=== PATIENT | male | born 1995 | race African-American/Black ===

== ENCOUNTER 2018-01-06 18:00 | Emergency (ER) | payer MEDICAID ==
--- NOTE | 2018-01-06 18:28 | ER Document Report ---
ED Medical Screen (RME) - General Chief Complaint: Psych Problem Stated Complaint: SUICIDAL IDEATIONS Time Seen by Provider: 01/06/18 18:27 Mode of Arrival: Ambulatory Information source: Patient Notes: 22 yr old female (sex change) presents with suicidal ideations. Pt tried ot hurt himself last week with air emboli, was at court today and ceo & board director wanted mental health evaluation pt was in residential for 5 days I have greeted and performed a rapid initial assessment of this patient. A comprehensive ED assessment and evaluation of the patient, analysis of test results and completion of the medical decision making process will be conducted by additional ED providers. PHYSICAL EXAMINATION: GENERAL: Well-appearing, well-nourished and in no acute distress. HEAD: Atraumatic, normocephalic. EYES: Pupils equal round extraocular movements intact, conjunctiva are normal. ENT: Nares patent NECK: Normal range of motion LUNGS: No respiratory distress Musculoskeletal: Normal range of motion NEUROLOGICAL: Normal speech, normal gait. SKIN: Warm, Dry, normal turgor, no rashes or lesions noted. TRAVEL OUTSIDE OF THE [place] IN LAST 30 DAYS: No - Related Data Allergies/Adverse Reactions: benztropine mesylate [From Cogentin] Adverse Reaction (Mild, Verified 01/06/18 18:02) Hallucinations risperidone [From Risperdal] Adverse Reaction (Mild, Verified 01/06/18 18:02) Hallucinations aripiprazole [From Abilify] Adverse Reaction (Verified 01/06/18 18:02) ziprasidone HCl [From Geodon] Adverse Reaction (Verified 01/06/18 18:02) ziprasidone mesylate [From Geodon] Adverse Reaction (Verified 01/06/18 18:02) Past Medical History - Social History Frequency of alcohol use: None Drug Abuse: Marijuana - Past Medical History Cardiac Medical History: Reports: Hx Hypertension Renal/ Medical History: Denies: Hx Peritoneal Dialysis Psychiatric Medical History: Reports: Hx Bipolar Disorder, Hx Schizoaffective Disorder, Hx Schizophrenia - Immunizations Immunizations up to date: Yes Hx Diphtheria, Pertussis, Tetanus Vaccination: Yes Physical Exam - Vital signs Vitals: Temp Pulse Resp BP Pulse Ox 97.7 F 80 18 144/96 H 100 01/06/18 18:06 01/06/18 18:06 01/06/18 18:06 01/06/18 18:06 01/06/18 18:06 Course - Vital Signs Vital signs: Temp Pulse Resp BP Pulse Ox 97.7 F 80 18 144/96 H 100 01/06/18 18:06 01/06/18 18:06 01/06/18 18:06 01/06/18 18:06 01/06/18 18:06
--- NOTE | 2018-01-06 19:37 | ER Document Report ---
ED General - General Chief Complaint: Psych Problem Stated Complaint: SUICIDAL IDEATIONS Time Seen by Provider: 01/06/18 18:27 Mode of Arrival: Ambulatory Cannot obtain history due to: Uncooperative Notes: Patient is a 22-year-old male with a past medical history of schizoaffective disorder currently taking only lithium who presents in the custody of a loan review officer with concerns of decompensation off of appropriate medications as well as suicidal ideation. The patient at the time of my assessment admits to passive suicidal ideation but denies any specific plans. He states last week he tried to inject air into his veins as a suicide attempt. States he has been taking the medications that he can get access to as directed. Nothing improves or worsens his symptoms. History is otherwise somewhat limited as patient is a very guarded historian TRAVEL OUTSIDE OF THE [place] IN LAST 30 DAYS: No - Related Data Allergies/Adverse Reactions: benztropine mesylate [From Cogentin] Adverse Reaction (Mild, Verified 01/06/18 18:02) Hallucinations risperidone [From Risperdal] Adverse Reaction (Mild, Verified 01/06/18 18:02) Hallucinations aripiprazole [From Abilify] Adverse Reaction (Verified 01/06/18 18:02) ziprasidone HCl [From Geodon] Adverse Reaction (Verified 01/06/18 18:02) ziprasidone mesylate [From Geodon] Adverse Reaction (Verified 01/06/18 18:02) Past Medical History - General Information source: Patient - Social History Smoking Status: Current Every Day Smoker Frequency of alcohol use: None Drug Abuse: Marijuana Family History: Reviewed & Not Pertinent Patient has suicidal ideation: Yes Patient has homicidal ideation: Yes - Past Medical History Cardiac Medical History: Reports: Hx Hypertension Renal/ Medical History: Denies: Hx Peritoneal Dialysis Psychiatric Medical History: Reports: Hx Bipolar Disorder, Hx Schizoaffective Disorder, Hx Schizophrenia - Immunizations Immunizations up to date: Yes Hx Diphtheria, Pertussis, Tetanus Vaccination: Yes Review of Systems - Review of Systems Notes: Constitutional: Negative for fever. HENT: Negative for sore throat. Eyes: Negative for visual changes. Cardiovascular: Negative for chest pain. Respiratory: Negative for shortness of breath. Gastrointestinal: Negative for abdominal pain, vomiting or diarrhea. Genitourinary: Negative for dysuria. Musculoskeletal: Negative for back pain. Skin: Negative for rash. Neurological: Negative for headaches, weakness or numbness. 10 point ROS negative except as marked above and in HPI. Physical Exam - Vital signs Vitals: Temp Pulse Resp BP Pulse Ox 97.7 F 80 18 144/96 H 100 01/06/18 18:06 18 18:06 01/06/18 18:06 01/06/18 18:06 01/06/18 18:06 Interpretation: Hypertensive Notes: PHYSICAL EXAMINATION: GENERAL: Well-appearing, well-nourished and in no acute distress. HEAD: Atraumatic, normocephalic. EYES: Pupils equal round and reactive to light, extraocular movements intact, sclera anicteric, conjunctiva are normal. ENT: nares patent, oropharynx clear without exudates. Moist mucous membranes. NECK: Normal range of motion, supple without lymphadenopathy LUNGS: Breath sounds clear to auscultation bilaterally and equal. No wheezes rales or rhonchi. HEART: Regular rate and rhythm without murmurs ABDOMEN: Soft, nontender, normoactive bowel sounds. No guarding, no rebound. No masses appreciated. EXTREMITIES: Normal range of motion, no pitting or edema. No cyanosis. NEUROLOGICAL: No focal neurological deficits. Moves all extremities spontaneously and on command. PSYCH: Flat affect, does not make eye contact SKIN: Warm, Dry, normal turgor, no rashes or lesions noted. Course - Re-evaluation Re-evalutation: 01/06/18 19:36 Patient presents with passive suicidal ideation no specific plan at this time but apparently voiced a plan to inject air into his veins earlier to staff numbers out of senior care. He has a long-standing history of schizoaffective disorder and is apparently not on all prescribed medications only the ones that "my family can afford". Patient is a very reserved historian, does not provide much additional information. He will be kept in the emergency department on a voluntary basis at this time, medical screening labs as well as physical examination are overall unremarkable. He is cleared for psychiatric evaluation and disposition in the morning. - Vital Signs Vital signs: Temp Pulse Resp BP Pulse Ox 97.7 F 80 18 144/96 H 100 01/06/18 18:06 01/06/18 18:06 01/06/18 18:06 01/06/18 18:06 01/06/18 18:06 - Laboratory Result Diagrams: 01/06/18 20:37 01/06/18 20:37 Laboratory results interpreted by me: 01/06/18 01/06/18 01/06/18 20:37 20:37 20:37 Hgb 12.7 L RDW 14.6 H Urine Urobilinogen 2.0 H Salicylates < 1.0 L Acetaminophen < 10 L - EKG Interpretation by Me Additional EKG results interpreted by me: 01/07/18 03:40 Sinus rhythm. Rate 60. No ST elevations or depressions. QTC is 408. Discharge - Discharge Clinical Impression: Suicidal ideation Schizoaffective disorder Qualifiers: Schizoaffective disorder type: unspecified Qualified Code(s): F25.9 - Schizoaffective disorder, unspecified Condition: Fair Disposition: PSYCH HOSP/UNIT
[2018-01-06 21:13] LABS: ABSOLUTE BASOPHILS # (AUTO) 0.1 10^3/uL (0.0-0.2); ABSOLUTE EOSINOPHILS # (AUTO) 0.1 10^3/uL (0.0-0.6); ABSOLUTE LYMPHOCYTES (AUTO) 1.9 10^3/uL (0.5-4.7); ABSOLUTE MONOCYTES (AUTO) 0.3 10^3/uL (0.1-1.4); ABSOLUTE NEUT (AUTO) 3.1 10^3/uL (1.7-8.2); EOSINOPHILS % (AUTO) 1.3 % (0-6); HEMATOCRIT 37.9 % (37.9-51.0); HEMOGLOBIN 12.7 g/dL (13.5-17.0); LYMPHOCYTES % (AUTO) 34.5 % (13-45); MEAN CORPUSCULAR HEMOGLOBIN 27.6 pg (27.0-33.4); MEAN CORPUSCULAR HGB CONC 33.6 g/dL (32.0-36.0); MEAN CORPUSCULAR VOLUME 82 fl (80-97); MONOCYTES % (AUTO) 6.3 % (3-13); PLATELET COUNT 306 10^3/uL (150-450); RED CELL DISTRIBUTION WIDTH 14.6 % (11.5-14.0); SEGMENTED NEUTROPHILS % (AUTO) 56.9 % (42-78); TOTAL CELLS COUNTED % (AUTO) 100 %; WHITE BLOOD COUNT 5.5 10^3/uL (4.0-10.5)
[2018-01-06 21:19] LABS: AMORPHOUS SEDIMENT,URINE TRACE /HPF; APPEARANCE,URINE CLOUDY; BILIRUBIN,URINE NEGATIVE (NEGATIVE); COLOR,URINE YELLOW; GLUCOSE, URINE NEGATIVE (NEGATIVE); KETONES,URINE NEGATIVE (NEGATIVE); LEUKOCYTE ESTERASE,URINE NEGATIVE (NEGATIVE); NITRITE,URINE NEGATIVE (NEGATIVE); PROTEIN,URINE NEGATIVE (NEGATIVE); URINE SPECIFIC GRAVITY 1.025
[2018-01-06 21:33] LABS: URINE AMPHETAMINES SCREEN NEGATIVE; URINE BARBITURATES SCREEN NEGATIVE; URINE BENZODIAZEPINES SCREEN NEGATIVE; URINE COCAINE SCREEN NEGATIVE; URINE MARIJUANA (THC) SCREEN NEGATIVE; URINE METHADONE SCREEN NEGATIVE; URINE PHENCYCLIDINE SCREEN NEGATIVE
[2018-01-06 21:36] LABS: ALANINE AMINOTRANSFERASE 29 U/L (21-72); ALBUMIN 4.4 g/dL (3.5-5.0); ALKALINE PHOSPHATASE 78 U/L (38-126); ANION GAP 10 (5-19); ASPARTATE AMINO TRANSFERASE 21 U/L (17-59); BILIRUBIN,DIRECT 0.3 mg/dL (0.0-0.4); BILIRUBIN,TOTAL 0.3 mg/dL (0.2-1.3); BLOOD UREA NITROGEN 15 mg/dL (7-20); CALCIUM 10.1 mg/dL (8.4-10.2); CARBON DIOXIDE 27 mmol/L (22-30); CHLORIDE 105 mmol/L (98-107); GLUCOSE 80 mg/dL (75-110); POTASSIUM 4.2 mmol/L (3.6-5.0); SODIUM 141.5 mmol/L (137-145); TOTAL PROTEIN 7.2 g/dL (6.3-8.2)
[2018-01-06 21:37] LABS: ACETAMINOPHEN < 10 ug/mL (10-30); ALCOHOL < 10 mg/dL (NONE DETECTED); SALICYLATE < 1.0 mg/dL (2.0-20.0)
--- NOTE | 2018-01-06 22:36 | EKG REPORT ---
SEVERITY:- OTHERWISE NORMAL ECG - SINUS RHYTHM ATRIAL PREMATURE COMPLEX : Confirmed by: Emiliano Fletcher 06-Jan-2018 22:35:59
--- NOTE | 2018-01-07 09:31 | ER Document Report ---
Doctor's Note Notes: 01/07/18 09:31 I have evaluated this patient this am and has no c/o at this time. Feels all of their needs are being met and physical exam is normal. Awaiting dispositon per mental health. 01/07/18 14:[address] Hoang at [facility] for inpatient psychiatric treatment.
--- NOTE | 2018-01-07 09:41 | PSYCHOLOGICAL NOTE ---
Psych Note - Psych Note Psych Note: Reason for Consult: Court Ordered Evaluation; IVC Consent permissions: None given Patient is a 22-year-old male with a past medical history of schizoaffective disorder currently taking only lithium who presents in the custody of a intelligence support officer with concerns of decompensation off of appropriate medications as well as suicidal ideation. Clinician notes- patient identifies as female and would like to be called [place] Patient disclosed that she wants to . She continued to disclose she has been feeling this way for about 4 years. When asked why she wants to , she disclosed there is "no reason really." Patient disclosed she take some of her medication (patient reported to attending evening physician she is unable to afford all her medications). Patient asked to return to sleep, and refused to further engage. Clinician spoke with patient's intelligence support officer who disclosed that he received a court order from block hand Jasbir for the patient to be IVC and evaluated. They are concerned the patient is suicidal at this time. Patient is alert and orientated to person, place, time and circumstance. Mood is dysphoric with flat affect. Patient endorses suicidal ideation with no plan however admits to attempting last week by injecting air into her veins. Patient denies homicidal ideation. Delusions are absent and behaviors congruent with intact reality based presentation i.e. organized, linear thinking. Conversational speech was low and very difficult to understand. No eye contact was made patient attempted to continually move her head away from the direction of where clinician was. Intellectual abilities appear to be within the average range. Attention and concentration are poor. Insight, judgment, impulse control appear to be historically poor. Chart review conducted: Attending nurse noted at about 5 am Threw some things around in room. States feeling "pissed off with this system, this government, his family." States everyone has let him down. States family doesn't like him and he doesn't know why. Denies wanting any medication to help him relax or sleep. States, "I'll just wake up and it will be the same old shit. " States, "I don't want to work, I don't want a house, I don't want to live." States, "I'm just going to stay awake until I ." States can't feel body because of emotional pain. Began crying. Cont. to state that he wants to . Cont to refuse any help from this RN. 295.70 (F25.1) schizoaffective disorder; depressive 302.6 (F64.9) unspecified gender dysphoria; currently identifies as female Impression/plan: Patient is recommended for IVC. Patient refuses to fully engage with clinician. Patient did have recent attempt last week by injecting air into her veins. Patient was "ordered by a block hand Jasbir to be IVC for mental health evaluation. Model Set Artist was concerned patient was not taking all prescribed medication and was decompensating with suicidal ideation. Patient discloses that she wants to to multiple staff members. Patient was accepted to [facility]; transportation will occur today. Dr. Lopez was consulted and the care management this patient; attending physician is in agreement with recommendations and disposition.
[2018-01-07 11:40] VITALS: BP 125/65
== END 2018-01-07 15:02 ==
LOC: ER 18:00
DX: F25.9 Schizoaffective disorder, unspecified (principal); Z79.899 Other long term (current) drug therapy; R45.851 Suicidal ideations; Z91.14 Patient's other noncompliance with medication regimen; F17.200 Nicotine dependence, unspecified, uncomplicated; I10 Essential (primary) hypertension; Z91.5 Personal history of self-harm
CPT/HCPCS: 36415; 80053; 80307; 81001; 85025; 93005; 93010; 99285

== ENCOUNTER 2018-01-24 04:01 | Emergency (ER) | payer MEDICAID, OTHER ==
--- NOTE | 2018-01-24 04:12 | ER Document Report ---
ED General <GERALDINE YOUSSEF - Last Filed: 01/24/18 09:31> <JAKI HAMMOND - Last Filed: 01/24/18 10:00> - General TRAVEL OUTSIDE OF THE [place] IN LAST 30 DAYS: No <JOHN MOISE - Last Filed: 01/25/18 00:08> - General Stated Complaint: PSYCH EVAL Time Seen by Provider: 01/24/18 04:06 Notes: Patient is a 22-year-old male who presents to the ER for the ambulance. He has history of psychiatric disorder. When asked the patient was brought here he says that he did not called any months. Asked him to work in a medical problems as he says hallucinations and paranoia. Any other question I asked him he responds by saying "it does not matter". Patient does have a hospital band on his wrist from a previous hospital. He will not tell me what this is from. I did review his previous records and so he was seen here at the beginning a month and then transported to [facility]. Patient will not come the medications he is on. Review his previous records of looks like he was on lithium in the past. Paramedics said that the rubber gasket inspector trimmer called the medics patient had just been sitting outside at the gas station for a long period time and would not interact or answer any questions. Asked patient if he is depressed or suicidal he says "it does not matter". Patient appears to be wearing a bra. I asked him if he is on hormone therapy and he says he is not. (JOHN MOISE) - Related Data Allergies/Adverse Reactions: benztropine mesylate [From Cogentin] Adverse Reaction (Mild, Verified 01/06/18 18:02) Hallucinations risperidone [From Risperdal] Adverse Reaction (Mild, Verified 01/06/18 18:02) Hallucinations aripiprazole [From Abilify] Adverse Reaction (Verified 01/06/18 18:02) ziprasidone HCl [From Geodon] Adverse Reaction (Verified 01/06/18 18:02) ziprasidone mesylate [From Geodon] Adverse Reaction (Verified 01/06/18 18:02) Past Medical History - Social History Smoking Status: Never Smoker Frequency of alcohol use: None Drug Abuse: None Family History: Reviewed & Not Pertinent - Past Medical History Cardiac Medical History: Reports: Hx Hypertension Renal/ Medical History: Denies: Hx Peritoneal Dialysis Psychiatric Medical History: Reports: Hx Bipolar Disorder, Hx Schizoaffective Disorder, Hx Schizophrenia - Immunizations Immunizations up to date: Yes Hx Diphtheria, Pertussis, Tetanus Vaccination: Yes <JOHN MOISE - Last Filed: 01/25/18 00:08> Review of Systems - Review of Systems -: Yes ROS unobtainable due to patient's medical condition - Patient will not answer most questions. <JOHN MOISE - Last Filed: 01/25/18 00:08> Physical Exam <GERALDINE YOUSSEF - Last Filed: 01/24/18 09:31> <JAKI HAMMOND - Last Filed: 01/24/18 10:00> <JOHN MOISE - Last Filed: 01/25/18 00:08> - Vital signs Vitals: Temp Pulse Resp BP Pulse Ox 98.7 F 86 18 148/88 H 99 01/24/18 04:49 01/24/18 04:49 01/24/18 04:49 01/24/18 04:49 01/24/18 04:49 - Notes Notes: General Appearance: Well nourished, alert, no acute distress, no obvious discomfort. Vitals: reviewed, See vital signs table. Head: no swelling or tenderness to the head Eyes: PERRL, EOMI, Conjuctiva clear Mouth: No decreasd moisture Lungs: No wheezing, No rales, No rhonci, No accessory muscle use, good air exchange bilaterally. Heart: Normal rate, Regular rythm, No murmur, no rub Abdomen: Normal BS, soft, No rigidity, No abdominal tenderness, No guarding, no rebound, no abdominal masses, no organomegaly Extremities: strength 5/5 in all extremities, good pulses in all extremities, no swelling or tenderness in the extremities, no edema. Skin: warm, dry, appropriate color, no rash Neuro: speech clear, oriented x 3, normal affect, responds appropriately to questions. Psychiatric: Very flat affect. Will not answer most questions. Does not make good eye contact. Seems somewhat angry. (JOHN MOISE) Course - Laboratory Result Diagrams: 01/24/18 05:00 01/24/18 05:00 <GERALDINE YOUSSEF - Last Filed: 01/24/18 09:31> - Laboratory Result Diagrams: 01/24/18 05:00 01/24/18 05:00 <JAKI HAMMOND - Last Filed: 01/24/18 10:00> - Laboratory Result Diagrams: 01/24/18 05:00 01/24/18 05:00 <JOHN MOISE - Last Filed: 01/25/18 00:08> - Re-evaluation Re-evalutation: 01/24/18 06:18 Patient has signs of uncontrolled psychiatric illness. He is having hallucinations and paranoia. Since being ER he is actually told the nurse that he is homicidal and wants to hurt people. He has not actually tried to tackle her anybody here in the ER. I have placed him on IVC paperwork. Only pending labs at this time the patient's chemistry panel lithium level. Once these come back and are okay he will be medically stable for psychiatric evaluation. Dictation of this chart was performed using voice recognition software; therefore, there may be some unintended grammatical errors. 01/25/18 00:08 (JOHN MOISE) - Vital Signs Vital signs: Temp Pulse Resp BP Pulse Ox 98.8 F 81 18 128/58 H 97 01/24/18 11:56 01/24/18 11:56 01/24/18 11:56 01/24/18 11:56 01/24/18 11:56 - Laboratory Laboratory results interpreted by me: 01/24/18 01/24/18 01/24/18 05:00 05:00 05:00 RDW 15.4 H Carbon Dioxide 21 L Anion Gap 20 H Total Protein 8.4 H Albumin 5.1 H Urine Urobilinogen 4.0 H Salicylates < 1.0 L Acetaminophen < 10 L - EKG Interpretation by Me Additional EKG results interpreted by me: 01/24/18 05:16 EKG is reviewed and interpreted by me. EKG shows sinus rhythm with a rate of [address] segment changes. PA interval, QRS duration, QTc intervals are within normal range. Old EKG for comparison is from January 06, 2018. (JOHN MOISE) Discharge <GERALDINE YOUSSEF - Last Filed: 01/24/18 09:31> <JAKI HAMMOND - Last Filed: 01/24/18 10:00> <JOHN MOISE - Last Filed: 01/25/18 00:08> - Discharge Clinical Impression: Schizophrenia Condition: Stable Disposition: HOME, SELF-CARE Additional Instructions: Schizophrenia Schizophrenia is a chemical disorder that affects how the brain functions. The exact cause is unknown, but it tends to run in families. It is NOT caused by emotional trauma. Schizophrenia causes disordered thinking, including unusual beliefs and inability to "process" happenings around the patient. Patients with schizophrenia benefit greatly from medicine. These medicines are called antipsychotics. Never stop the medicine without the doctor 's approval. Counselling may help the patient deal with his disease. Schizophrenics require a very ordered environment. Stresses and sudden changes may bring out symptoms. Drugs and alcohol abuse may become problems. Contact the counsellor or crisis line if there are thoughts of suicide or of harming others, or if you become aware of unusual thoughts or beliefsHallucinations You seem to be having hallucinations. Hallucinations are seeing, hearing, or feeling things that don't exist. These symptoms commonly occur with drug abuse and schizophrenia. Drugs like PCP, LSD, MDMA, peyote, and "psychedelic mushrooms" can cause frightening hallucinations. Users of methamphetamine or crack cocaine often see and feel bugs crawling on their skin. Patients with schizophrenia may hear voices that no one else can hear. The delusions of schizophrenia often involve conspiracies or relationships that are not real. When symptoms are due to drug abuse, the mental state usually improves as the drug wears off. Someone you trust should be with you until you are better, to protect you and calm your fears. Tranquilizer medicine is helpful at controlling hallucinations, anxiety, and deluded thoughts. Get a proper diet and enough sleep. Most patients do very well when they get proper medical treatment and social support. You should return at once if your symptoms get worse, if you are having suicidal thoughts or thoughts about hurting others, or if you feel that you are in danger. Referrals: [facility] [Outside] - Follow up in 3-5 days
[2018-01-24] MEDS ORDERED: ZIPRASIDONE HCL 20 MG CAPSULE PO ONE (04:56)
[2018-01-24 05:31] LABS: ABSOLUTE EOSINOPHILS # (AUTO) 0.1 10^3/uL (0.0-0.6); ABSOLUTE LYMPHOCYTES (AUTO) 1.8 10^3/uL (0.5-4.7); ABSOLUTE MONOCYTES (AUTO) 0.8 10^3/uL (0.1-1.4); BASOPHILS % (AUTO) 0.5 % (0-2); EOSINOPHILS % (AUTO) 0.7 % (0-6); HEMATOCRIT 44.6 % (37.9-51.0); HEMOGLOBIN 14.7 g/dL (13.5-17.0); LYMPHOCYTES % (AUTO) 20.7 % (13-45); MEAN CORPUSCULAR HEMOGLOBIN 27.7 pg (27.0-33.4); MEAN CORPUSCULAR VOLUME 84 fl (80-97); MONOCYTES % (AUTO) 8.8 % (3-13); PLATELET COUNT 178 10^3/uL (150-450); RED BLOOD COUNT 5.32 10^6/uL (4.35-5.55); RED CELL DISTRIBUTION WIDTH 15.4 % (11.5-14.0); SEGMENTED NEUTROPHILS % (AUTO) 69.3 % (42-78); TOTAL CELLS COUNTED % (AUTO) 100 %; WHITE BLOOD COUNT 8.7 10^3/uL (4.0-10.5)
[2018-01-24 05:35] LABS: APPEARANCE,URINE CLEAR; BILIRUBIN,URINE NEGATIVE (NEGATIVE); COLOR,URINE YELLOW; GLUCOSE, URINE NEGATIVE (NEGATIVE); KETONES,URINE NEGATIVE (NEGATIVE); LEUKOCYTE ESTERASE,URINE NEGATIVE (NEGATIVE); NITRITE,URINE NEGATIVE (NEGATIVE); PROTEIN,URINE NEGATIVE (NEGATIVE); URINE SPECIFIC GRAVITY 1.015
[2018-01-24 05:55] LABS: URINE AMPHETAMINES SCREEN NEGATIVE; URINE BARBITURATES SCREEN NEGATIVE; URINE BENZODIAZEPINES SCREEN NEGATIVE; URINE COCAINE SCREEN NEGATIVE; URINE MARIJUANA (THC) SCREEN NEGATIVE; URINE METHADONE SCREEN NEGATIVE; URINE PHENCYCLIDINE SCREEN NEGATIVE
[2018-01-24 06:07] LABS: ALANINE AMINOTRANSFERASE 38 U/L (21-72); ALBUMIN 5.1 g/dL (3.5-5.0); ALKALINE PHOSPHATASE 90 U/L (38-126); ASPARTATE AMINO TRANSFERASE 36 U/L (17-59); BILIRUBIN,DIRECT 0.4 mg/dL (0.0-0.4); BILIRUBIN,TOTAL 0.5 mg/dL (0.2-1.3); BLOOD UREA NITROGEN 12 mg/dL (7-20); CALCIUM 10.1 mg/dL (8.4-10.2); GLUCOSE 92 mg/dL (75-110)
[2018-01-24 06:08] LABS: LITHIUM 0.7 mEq/L (0.6-1.2); TOTAL PROTEIN 8.4 g/dL (6.3-8.2)
[2018-01-24 06:11] LABS: ACETAMINOPHEN < 10 ug/mL (10-30); ALCOHOL < 10 mg/dL (NONE DETECTED); SALICYLATE < 1.0 mg/dL (2.0-20.0)
[2018-01-24 06:24] LABS: ANION GAP 20 (5-19); CARBON DIOXIDE 21 mmol/L (22-30); CHLORIDE 100 mmol/L (98-107); POTASSIUM 3.8 mmol/L (3.6-5.0); SODIUM 141.4 mmol/L (137-145)
--- NOTE | 2018-01-24 07:48 | EKG REPORT ---
SEVERITY:- NORMAL ECG - SINUS RHYTHM ST ELEV, PROBABLE NORMAL EARLY REPOL PATTERN : Confirmed by: Armando Campbell MD 24-Jan-2018 07:48:06
--- NOTE | 2018-01-24 09:36 | PSYCHOLOGICAL NOTE ---
Psych Note - Psych Note Psych Note: Reason for consult: Reported hallucinations/psychosis Contact permissions given: none Time of initial consult 7:25 am, time of final disposition 7:47 am Patient is a 22 year old male. Patient reports he is "confused but hasn't lost all sense of logic". Patient stated " I want to balanced". Patient reports his medication is the only thing that helps his brain feel "balanced". Patient reports he takes his medication everyday. Patient reports prior to coming to the ED he took his medicine in the morning, then walked to [place] and stayed there until it was dark. Patient reports he likes to write poetry and requested something to write with. Patient reports he has a "foundation" when asked about social supports but requested not to involve their family stating they were "manipulative". Clinician observed patient was able to identify the year, president, and day. Clinician utilized solution focused brief therapy techniques and facilitated a discussion regarding patient's solution, patient stated " I have auditory and visual hallucinations, I see letters like MARLEN and they have color". Patient reports he is aware that these are not real, and states that he has been this way for a while. Patient stated he felt disorganized, categorized, and rearranged. Patient stated that an involuntary commitment is when he feels like he has no control over his life. Patient reports he lives by a police station. Patient reports that he only feels "insanity" when he is stressed out or fears the way his mind works. Patient reports that life can be a conspiracy, where human beings can't be trusted and they want to wipe his mind. Patient reports when he first takes his medications he feels relaxed and prepared. Patient reports towards the end of the day when it is dark outside he starts to feel uneasy. Patient reports that he has been into a psychiatric facility 28 times and requested to be institutionalized, somewhere he can live for the rest of his life. Clinician observed after a comprehensive chart review and staffing with Dr. Lopez regarding patient, patient is at his baseline. Medication recommendation: medication recommendations made by psychiatric provider Dr. Ann MD. includes: None Diagnosis: 295.70 ( F25.1) Schizoaffective disorder 302.6 ( F64.9) Unspecified gender dysphoria; currently identifies as female Impression/ Plan: Patient is psychiatrically cleared for discharge by mental health. Recommendation for patient to follow up with primary care provider[facility]. Consulted with Dr. Lopez regarding the management and care of patient.
--- NOTE | 2018-01-24 10:11 | ER Document Report ---
Doctor's Note Notes: 01/24/18 10:10 Rounds: Chart reviewed. Patient sleeping so not interviewed. Patient's being evaluated for hallucinations, paranoia, and homicidal ideations. Vital signs were all normal. Lab studies are normal including a lithium level of 0.7 is therapeutic. Patient appears to be medically stable for transfer or discharge. Avril Spencer MD
[2018-01-24 12:19] VITALS: BP 128/58
== END 2018-01-24 12:15 | disposition home or self-care (01) ==
LOC: ER 04:01
DX: F25.9 Schizoaffective disorder, unspecified (principal); F64.9 Gender identity disorder, unspecified; R45.850 Homicidal ideations; I10 Essential (primary) hypertension; Z79.899 Other long term (current) drug therapy
CPT/HCPCS: 36415; 80053; 80178; 80307; 81001; 85025; 93005; 93010; 99285

== ENCOUNTER 2018-01-26 23:48 | Emergency (ER) | payer MEDICAID ==
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
[2018-01-27 00:57] LABS: ABSOLUTE EOSINOPHILS # (AUTO) 0.1 10^3/uL (0.0-0.6); ABSOLUTE LYMPHOCYTES (AUTO) 2.6 10^3/uL (0.5-4.7); ABSOLUTE MONOCYTES (AUTO) 0.7 10^3/uL (0.1-1.4); ABSOLUTE NEUT (AUTO) 3.1 10^3/uL (1.7-8.2); BASOPHILS % (AUTO) 0.8 % (0-2); EOSINOPHILS % (AUTO) 1.9 % (0-6); HEMATOCRIT 39.3 % (37.9-51.0); HEMOGLOBIN 13.2 g/dL (13.5-17.0); LYMPHOCYTES % (AUTO) 40.1 % (13-45); MEAN CORPUSCULAR HEMOGLOBIN 28.1 pg (27.0-33.4); MEAN CORPUSCULAR HGB CONC 33.7 g/dL (32.0-36.0); MEAN CORPUSCULAR VOLUME 83 fl (80-97); MONOCYTES % (AUTO) 10.3 % (3-13); PLATELET COUNT 180 10^3/uL (150-450); RED BLOOD COUNT 4.72 10^6/uL (4.35-5.55); RED CELL DISTRIBUTION WIDTH 15.1 % (11.5-14.0); SEGMENTED NEUTROPHILS % (AUTO) 46.9 % (42-78); TOTAL CELLS COUNTED % (AUTO) 100 %; WHITE BLOOD COUNT 6.5 10^3/uL (4.0-10.5)
[2018-01-27 01:13] LABS: ALANINE AMINOTRANSFERASE 26 U/L (21-72); ALBUMIN 4.8 g/dL (3.5-5.0); ALKALINE PHOSPHATASE 77 U/L (38-126); ANION GAP 14 (5-19); ASPARTATE AMINO TRANSFERASE 29 U/L (17-59); BILIRUBIN,DIRECT 0.1 mg/dL (0.0-0.4); BILIRUBIN,TOTAL 0.3 mg/dL (0.2-1.3); BLOOD UREA NITROGEN 19 mg/dL (7-20); CALCIUM 10.1 mg/dL (8.4-10.2); CARBON DIOXIDE 25 mmol/L (22-30); CHLORIDE 103 mmol/L (98-107); GLUCOSE 92 mg/dL (75-110); SODIUM 142.3 mmol/L (137-145); TOTAL PROTEIN 7.3 g/dL (6.3-8.2)
[2018-01-27 01:15] LABS: ACETAMINOPHEN < 10 ug/mL (10-30); ALCOHOL < 10 mg/dL (NONE DETECTED)
[2018-01-27 01:19] LABS: FREE T4 (FREE THYROXINE) 1.01 ng/dL (0.78-2.19)
[2018-01-27 01:25] LABS: APPEARANCE,URINE SLIGHTLY-CLOUDY; BILIRUBIN,URINE NEGATIVE (NEGATIVE); COLOR,URINE YELLOW; GLUCOSE, URINE NEGATIVE (NEGATIVE); KETONES,URINE NEGATIVE (NEGATIVE); LEUKOCYTE ESTERASE,URINE NEGATIVE (NEGATIVE); NITRITE,URINE NEGATIVE (NEGATIVE); PROTEIN,URINE 30 mg/dL (NEGATIVE); URINE SPECIFIC GRAVITY 1.027
[2018-01-27 01:33] LABS: THYROID STIMULATING HORMONE 2.71 uIU/mL (0.47-4.68)
[2018-01-27] MEDS ORDERED: LITHIUM CARBONATE 300 MG CAPSULE PO ONE (02:13)
[2018-01-27] MEDS ORDERED: LORAZEPAM 1 MG TABLET PO ONE ×2 (02:19→04:04)
[2018-01-27 02:21] LABS: URINE AMPHETAMINES SCREEN NEGATIVE; URINE BARBITURATES SCREEN NEGATIVE; URINE BENZODIAZEPINES SCREEN NEGATIVE; URINE COCAINE SCREEN NEGATIVE; URINE MARIJUANA (THC) SCREEN NEGATIVE; URINE METHADONE SCREEN NEGATIVE; URINE PHENCYCLIDINE SCREEN NEGATIVE
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
--- NOTE | 2018-01-27 13:40 | ER Document Report ---
Doctor's Note Notes: 01/27/18 13:39 Patient was seen and evaluated. Mental health is seen. At this time does not meet criteria for inpatient. Medication adjustments have been made. Please see previous physician's note for further details. Will follow the advice of her mental health team at this time and discharge. Discharge - Discharge Clinical Impression: Schizoaffective disorder, bipolar type Condition: Stable Disposition: HOME, SELF-CARE Additional Instructions: Hallucinations You seem to be having hallucinations. Hallucinations are seeing, hearing, or feeling things that don't exist. These symptoms commonly occur with drug abuse and schizophrenia. Drugs like PCP, LSD, MDMA, peyote, and "psychedelic mushrooms" can cause frightening hallucinations. Users of methamphetamine or crack cocaine often see and feel bugs crawling on their skin. Patients with schizophrenia may hear voices that no one else can hear. The delusions of schizophrenia often involve conspiracies or relationships that are not real. When symptoms are due to drug abuse, the mental state usually improves as the drug wears off. Someone you trust should be with you until you are better, to protect you and calm your fears. Tranquilizer medicine is helpful at controlling hallucinations, anxiety, and deluded thoughts. Get a proper diet and enough sleep. Most patients do very well when they get proper medical treatment and social support. You should return at once if your symptoms get worse, if you are having suicidal thoughts or thoughts about hurting others, or if you feel that you are in danger. Bipolar Disorder Bipolar disorder is also called manic-depressive disorder. Depression alternates with brain hyperactivity called dakotah. Each phase lasts from several days to a few weeks. We don't know exactly what causes bipolar disorder , but it's treatable. During the "manic phase," you may feel elated and energetic. You may have racing thoughts, rapid speech, increased activity, and grandiose ideas. During this time, you may not realize how poor your judgement is. Inappropriate spending, drug abuse, excessive alcohol use, marriage problems, and irresponsible sexual behavior are common during the manic phase. During the "depressive phase," you might feel depressed, guilty, worthless , fatigued, and unable to concentrate. You might have thoughts of suicide. Good treatments are available for bipolar disorder. [place] is a classic drug for bipolar disorder, and is still often useful. If the manic phase is very mild, an antidepressant alone can be prescribed. If the manic phase is very severe, an antipsychotic medicine (such as Haldol) may be needed. The treatment must be matched to your symptoms, so it's important to work closely with your psychiatric care provider. Contact your physician, the hospital emergency center, crisis line, or your counsellor if you are losing control or having self-destructive thoughts. Please follow up with your outpatient mental health, [facility], in 3-5 days for continued services. Please use mobile crisis services for crisis intervention when having difficulties with social stressors or having verbal arguments with family so you do not have to rely on emergency department services for respite services. AT ANY TIME, IF YOUR SYMPTOMS CHANGE SIGNIFICANTLY OR WORSEN OR YOU DEVELOP NEW SYMPTOMS, RETURN TO THE EMERGENCY DEPARTMENT IMMEDIATELY FOR RE-EVALUATION. Referrals: [facility] [Outside] - Follow up in 3-5 days [facility] [Outside] - Follow up as needed
[2018-01-27 13:48] VITALS: BP 132/68
== END 2018-01-27 13:47 | disposition home or self-care (01) ==
LOC: ER 23:48
DX: F25.0 Schizoaffective disorder, bipolar type (principal); F22 Delusional disorders
CPT/HCPCS: 99285; 36415; 84439; 80307 ×3; 80178; 83735; 84443; 85025; 80053; 81001; J3490

== ENCOUNTER 2019-08-09 22:13 | Emergency (ER) | payer MEDICAID, OTHER ==
[2019-08-09 23:29] LABS: ABSOLUTE LYMPHOCYTES (AUTO) 1.5 10^3/uL (0.5-4.7); ABSOLUTE MONOCYTES (AUTO) 0.5 10^3/uL (0.1-1.4); ABSOLUTE NEUT (AUTO) 4.2 10^3/uL (1.7-8.2); BASOPHILS % (AUTO) 0.3 % (0-2); EOSINOPHILS % (AUTO) 0.2 % (0-6); HEMATOCRIT 37.5 % (37.9-51.0); HEMOGLOBIN 12.5 g/dL (13.5-17.0); LYMPHOCYTES % (AUTO) 23.7 % (13-45); MEAN CORPUSCULAR HEMOGLOBIN 27.4 pg (27.0-33.4); MEAN CORPUSCULAR HGB CONC 33.2 g/dL (32.0-36.0); MEAN CORPUSCULAR VOLUME 83 fl (80-97); MONOCYTES % (AUTO) 8.5 % (3-13); PLATELET COUNT 145 10^3/uL (150-450); RED BLOOD COUNT 4.55 10^6/uL (4.35-5.55); RED CELL DISTRIBUTION WIDTH 14.3 % (11.5-14.0); SEGMENTED NEUTROPHILS % (AUTO) 67.3 % (42-78); TOTAL CELLS COUNTED % (AUTO) 100 %; WHITE BLOOD COUNT 6.3 10^3/uL (4.0-10.5)
[2019-08-09 23:48] LABS: ALBUMIN 4.8 g/dL (3.5-5.0); ALKALINE PHOSPHATASE 85 U/L (38-126); ANION GAP 12 (5-19); ASPARTATE AMINO TRANSFERASE 34 U/L (17-59); BILIRUBIN,DIRECT 0.1 mg/dL (0.0-0.4); BILIRUBIN,TOTAL 0.3 mg/dL (0.2-1.3); BLOOD UREA NITROGEN 18 mg/dL (7-20); CALCIUM 9.4 mg/dL (8.4-10.2); CARBON DIOXIDE 23 mmol/L (22-30); CHLORIDE 106 mmol/L (98-107); GLUCOSE 98 mg/dL (75-110); POTASSIUM 3.9 mmol/L (3.6-5.0); TOTAL PROTEIN 7.6 g/dL (6.3-8.2)
[2019-08-09 23:49] LABS: ACETAMINOPHEN < 10 ug/mL (10-30); ALCOHOL < 10 mg/dL (NONE DETECTED); SALICYLATE < 1.0 mg/dL (2.0-20.0)
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
[2019-08-10] MEDS ORDERED: LORAZEPAM INJ 2 MG/1 ML VIAL IV ONE ×2 (03:16→03:17)
[2019-08-10 05:07] LABS: APPEARANCE,URINE CLEAR; BILIRUBIN,URINE NEGATIVE (NEGATIVE); COLOR,URINE YELLOW; GLUCOSE, URINE NEGATIVE (NEGATIVE); KETONES,URINE NEGATIVE (NEGATIVE); LEUKOCYTE ESTERASE,URINE NEGATIVE (NEGATIVE); NITRITE,URINE NEGATIVE (NEGATIVE); PROTEIN,URINE NEGATIVE (NEGATIVE); URINE SPECIFIC GRAVITY 1.021; UROBILINOGEN,URINE NEGATIVE mg/dL (<2.0)
[2019-08-10 05:24] LABS: URINE AMPHETAMINES SCREEN NEGATIVE; URINE BARBITURATES SCREEN NEGATIVE; URINE BENZODIAZEPINES SCREEN NEGATIVE; URINE COCAINE SCREEN NEGATIVE; URINE MARIJUANA (THC) SCREEN NEGATIVE; URINE METHADONE SCREEN NEGATIVE; URINE PHENCYCLIDINE SCREEN NEGATIVE
--- NOTE | 2019-08-10 09:33 | EKG REPORT ---
SEVERITY:- NORMAL ECG - SINUS RHYTHM : Confirmed by: Lexie Mejia MD 10-Aug-2019 09:32:26
--- NOTE | 2019-08-10 11:44 | ER Document Report ---
Doctor's Note Notes: 08/10/19 11:43 Rounds: Chart reviewed and patient interviewed. Patient was brought in for extreme agitation and altered mental status. He has a history of schizophrenia and bipolar disorder. Lab studies were all essentially normal. Vital signs were normal except for a blood pressure 141/103. Patient is going to be placed. Patient appears to be medically stable for transfer or discharge. Betty Spencer MD
[2019-08-10] MEDS: CHLORPROMAZINE HCL 50 MG TABLET PO SCH ×2 (11:59→18:25)
[2019-08-10] MEDS: DIPHENHYDRAMINE HCL 50 MG CAPSULE PO SCH ×2 (12:00→18:25)
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
[2019-08-11] MEDS: DIPHENHYDRAMINE HCL 50 MG CAPSULE PO SCH ×3 (00:07→11:18)
[2019-08-11] MEDS: CHLORPROMAZINE HCL 50 MG TABLET PO SCH ×3 (00:07→11:18)
--- NOTE | 2019-08-11 11:08 | ER Document Report ---
Doctor's Note Notes: 08/11/19 11:06 I have evaluated this pt. this am and he has no c/o. He feels all of his needs are being met and his physical exam is normal. He is awaiting disposition per mental health.
--- NOTE | 2019-08-11 11:51 | PSYCHOLOGICAL NOTE ---
Psych Note - Psych Note Date seen by psych provider: 08/11/19 Psych Note: Presenting Problem: 24 Hour IVC Petition, active psychosis, delusions of grandeur (said he was in the BAL), [facility], has a hx of Schizophrenia and Bipolar, known to be noncompliant with medications, was just [facility] from [facility] and EMS had to administer IM Ketamine for stabilization and management. Patient was accepted to [facility]; transportation was requested. Diagnosis: Schizoaffective Disorder, Bipolar Type by Hx Medication recommendations made by the psychiatric medical provider, Dr. Ann Md., includes: Add Thorazine 50MG every 6 hours scheduled for psychosis/agitation Add Benadryl 50MG every 8 hours scheduled to curb tremor side effects often associated with antipsychotic medications Impression/Plan: Recommendation for full IVC. Patient presented with active psychosis (delusions of grandeur saying he's in the BAL), has a Hx of Schizoaffective Disorder, noncompliance with medication, just got out of a year long [facility] stint and mother noted his MH has worsened. Consulted with Dr. Lopez regarding the management and care of patient. ED Physician in agreement with recommendations.
[2019-08-11 12:16] VITALS: BP 132/81
== END 2019-08-11 12:10 | disposition other institution (70) ==
LOC: ER 22:13
DX: F22 Delusional disorders (principal); F23 Brief psychotic disorder; R41.82 Altered mental status, unspecified; R45.1 Restlessness and agitation; I10 Essential (primary) hypertension
CPT/HCPCS: 36415; 80053; 80307; 81001; 85025; 93005; 93010; J2060; J3490

== ENCOUNTER 2019-09-27 18:06 | Emergency (ER) | payer OTHER ==
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
[2019-09-27 19:38] LABS: BASOPHILS % (AUTO) 0.6 % (0-2); RED BLOOD COUNT 4.26 10^6/uL (4.35-5.55); TOTAL CELLS COUNTED % (AUTO) 100 %
[2019-09-27 19:42] LABS: ABSOLUTE LYMPHOCYTES (AUTO) 1.2 10^3/uL (0.5-4.7); ABSOLUTE MONOCYTES (AUTO) 0.4 10^3/uL (0.1-1.4); ABSOLUTE NEUT (AUTO) 3.4 10^3/uL (1.7-8.2); EOSINOPHILS % (AUTO) 0.7 % (0-6); HEMATOCRIT 35.9 % (37.9-51.0); HEMOGLOBIN 11.8 g/dL (13.5-17.0); LYMPHOCYTES % (AUTO) 24.3 % (13-45); MEAN CORPUSCULAR HEMOGLOBIN 27.6 pg (27.0-33.4); MEAN CORPUSCULAR HGB CONC 32.8 g/dL (32.0-36.0); MEAN CORPUSCULAR VOLUME 84 fl (80-97); PLATELET COUNT 205 10^3/uL (150-450); RED CELL DISTRIBUTION WIDTH 14.7 % (11.5-14.0); SEGMENTED NEUTROPHILS % (AUTO) 67.4 % (42-78)
[2019-09-27 19:51] LABS: APPEARANCE,URINE CLEAR; BILIRUBIN,URINE NEGATIVE (NEGATIVE); COLOR,URINE YELLOW; GLUCOSE, URINE NEGATIVE (NEGATIVE); KETONES,URINE 20 mg/dL (NEGATIVE); LEUKOCYTE ESTERASE,URINE NEGATIVE (NEGATIVE); NITRITE,URINE NEGATIVE (NEGATIVE); PROTEIN,URINE NEGATIVE (NEGATIVE); URINE SPECIFIC GRAVITY 1.019
[2019-09-27] MEDS: CHLORPROMAZINE HCL 50 MG TABLET PO SCH ×2 (19:54→23:07)
[2019-09-27 19:59] LABS: ALBUMIN 4.2 g/dL (3.5-5.0); ALKALINE PHOSPHATASE 88 U/L (38-126); ANION GAP 10 (5-19); ASPARTATE AMINO TRANSFERASE 44 U/L (17-59); BILIRUBIN,DIRECT 0.1 mg/dL (0.0-0.4); BILIRUBIN,TOTAL 0.3 mg/dL (0.2-1.3); BLOOD UREA NITROGEN 13 mg/dL (7-20); CALCIUM 9.2 mg/dL (8.4-10.2); CARBON DIOXIDE 25 mmol/L (22-30); CHLORIDE 106 mmol/L (98-107); GLUCOSE 75 mg/dL (75-110); POTASSIUM 3.4 mmol/L (3.6-5.0); TOTAL PROTEIN 6.9 g/dL (6.3-8.2)
[2019-09-27 20:00] LABS: ACETAMINOPHEN < 10 ug/mL (10-30); ALCOHOL < 10 mg/dL (NONE DETECTED)
[2019-09-27 20:01] LABS: SALICYLATE < 1.0 mg/dL (2.0-20.0)
[2019-09-27 20:11] LABS: URINE AMPHETAMINES SCREEN NEGATIVE; URINE BARBITURATES SCREEN NEGATIVE; URINE BENZODIAZEPINES SCREEN NEGATIVE; URINE COCAINE SCREEN NEGATIVE; URINE MARIJUANA (THC) SCREEN NEGATIVE; URINE METHADONE SCREEN NEGATIVE; URINE PHENCYCLIDINE SCREEN NEGATIVE
[2019-09-28] MEDS ORDERED: DIPHENHYDRAMINE HCL 25 MG CAPSULE ONE ×2 (02:41→09:19)
--- NOTE | 2019-09-28 07:17 | EKG REPORT ---
SEVERITY:- BORDERLINE ECG - SINUS RHYTHM INFERIOR Q WAVES, PROBABLY NORMAL VARIATION : Confirmed by: Armando Campbell MD 28-Sep-2019 07:16:02
[2019-09-28] MEDS: CHLORPROMAZINE HCL 50 MG TABLET PO SCH ×2 (09:14→13:11)
[2019-09-28 10:31] VITALS: BP 150/81
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
[2019-09-28] MEDS ORDERED: DIPHENHYDRAMINE HCL 50 MG CAPSULE PO SCH ×2 (14:00→20:00)
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
== END 2019-09-28 14:48 | disposition home or self-care (01) ==
LOC: ER 18:06
DX: F20.9 Schizophrenia, unspecified (principal); F17.200 Nicotine dependence, unspecified, uncomplicated; I10 Essential (primary) hypertension
CPT/HCPCS: 93005; 99285; 36415; 80307 ×4; 85025; 80053; 81001; 93010; J3490 ×4

== ENCOUNTER 2019-09-30 14:54 | Emergency (ER) | payer MEDICAID, OTHER ==
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
[2019-09-30 15:45] LABS: APPEARANCE,URINE CLEAR; BILIRUBIN,URINE NEGATIVE (NEGATIVE); COLOR,URINE STRAW; GLUCOSE, URINE NEGATIVE (NEGATIVE); KETONES,URINE NEGATIVE (NEGATIVE); LEUKOCYTE ESTERASE,URINE NEGATIVE (NEGATIVE); NITRITE,URINE NEGATIVE (NEGATIVE); PROTEIN,URINE NEGATIVE (NEGATIVE); URINE SPECIFIC GRAVITY 1.012; UROBILINOGEN,URINE NEGATIVE mg/dL (<2.0)
[2019-09-30 15:51] LABS: ADD MANUAL MICROSCOPIC YES
[2019-09-30] MEDS ORDERED: HALOPERIDOL DECANOATE INJ 100 MG/1 ML VIAL IM PRN (15:53)
[2019-09-30] MEDS ORDERED: BENZTROPINE MESYLATE INJ 2 MG/2 ML AMPULE IM PRN (15:53)
[2019-09-30 16:01] LABS: URINE AMPHETAMINES SCREEN NEGATIVE; URINE BARBITURATES SCREEN NEGATIVE; URINE BENZODIAZEPINES SCREEN NEGATIVE; URINE COCAINE SCREEN NEGATIVE; URINE MARIJUANA (THC) SCREEN NEGATIVE; URINE METHADONE SCREEN NEGATIVE; URINE PHENCYCLIDINE SCREEN NEGATIVE
[2019-09-30 16:10] LABS: ABSOLUTE EOSINOPHILS # (AUTO) 0.1 10^3/uL (0.0-0.6); ABSOLUTE MONOCYTES (AUTO) 0.3 10^3/uL (0.1-1.4); ABSOLUTE NEUT (AUTO) 2.5 10^3/uL (1.7-8.2); BASOPHILS % (AUTO) 0.4 % (0-2); EOSINOPHILS % (AUTO) 2.7 % (0-6); HEMATOCRIT 39.3 % (37.9-51.0); HEMOGLOBIN 12.9 g/dL (13.5-17.0); LYMPHOCYTES % (AUTO) 24.9 % (13-45); MEAN CORPUSCULAR HEMOGLOBIN 27.7 pg (27.0-33.4); MEAN CORPUSCULAR HGB CONC 32.8 g/dL (32.0-36.0); MEAN CORPUSCULAR VOLUME 85 fl (80-97); MONOCYTES % (AUTO) 7.7 % (3-13); PLATELET COUNT 256 10^3/uL (150-450); RED BLOOD COUNT 4.65 10^6/uL (4.35-5.55); RED CELL DISTRIBUTION WIDTH 14.2 % (11.5-14.0); SEGMENTED NEUTROPHILS % (AUTO) 64.3 % (42-78); TOTAL CELLS COUNTED % (AUTO) 100 %; WHITE BLOOD COUNT 3.9 10^3/uL (4.0-10.5)
[2019-09-30 16:27] LABS: ALBUMIN 4.3 g/dL (3.5-5.0); ALKALINE PHOSPHATASE 73 U/L (38-126); ANION GAP 8 (5-19); ASPARTATE AMINO TRANSFERASE 30 U/L (17-59); BILIRUBIN,TOTAL 0.2 mg/dL (0.2-1.3); BLOOD UREA NITROGEN 14 mg/dL (7-20); CALCIUM 9.3 mg/dL (8.4-10.2); CARBON DIOXIDE 27 mmol/L (22-30); CHLORIDE 103 mmol/L (98-107); GLUCOSE 87 mg/dL (75-110); POTASSIUM 4.3 mmol/L (3.6-5.0); TOTAL PROTEIN 7.3 g/dL (6.3-8.2)
[2019-09-30 16:30] LABS: ACETAMINOPHEN < 10 ug/mL (10-30); ALCOHOL < 10 mg/dL (NONE DETECTED); SALICYLATE < 1.0 mg/dL (2.0-20.0)
--- NOTE | 2019-09-30 17:02 | ER Document Report ---
ED General <VIN PEREZ - Last Filed: 09/30/19 17:40> - General Mode of Arrival: Ambulatory TRAVEL OUTSIDE OF THE [place] IN LAST 30 DAYS: No <MITULSAMIR DRAKEN - Last Filed: 09/30/19 18:15> - General Chief Complaint: Psych Problem Stated Complaint: PSYCH Time Seen by Provider: 09/30/19 15:07 Primary Care Provider: Silviano Lewis [Outside] - Follow up as needed KARO ROONEY MD [Primary Care Provider] - Follow up as needed - HPI Notes: Patient is a 23-year-old male with a history of schizophrenia and bipolar and noncompliance with medications who presents on IVC papers via [facility]'s dep artment. Pt was wanting to leave [place] which prompted the IVC because they wanted him to stay for another day and he got irritated and threw soap. He has been having thoughts of grandeur and stating that he is in the [employer] which is not uncommon for him from when we saw him earlier in the week. He was released from [facility] about a month ago after a year-long stay. He is otherwise not able to provide me with any other meaningful history at this time. Denies any headache, fever, neck pain, URI, sore throat, chest pain, palpitations, syncope, cough, shortness of breath, wheeze, dyspnea, abdominal pain, nausea/vomiting/diarrhea, urinary retention, dysuria, hematuria, or rash. (EMILY BAUMAN) - Related Data Allergies/Adverse Reactions: benztropine mesylate [From Cogentin] Adverse Reaction (Mild, Verified 09/30/19 15:06) Hallucinations risperidone [From Risperdal] Adverse Reaction (Mild, Verified 09/30/19 15:06) Hallucinations aripiprazole [From Abilify] Adverse Reaction (Verified 09/30/19 15:06) ziprasidone HCl [From Geodon] Adverse Reaction (Verified 09/30/19 15:06) ziprasidone mesylate [From Geodon] Adverse Reaction (Verified 09/30/19 15:06) Past Medical History - General Information source: Patient - Social History Smoking Status: Unknown if Ever Smoked Family History: Reviewed & Not Pertinent Patient has suicidal ideation: No Patient has homicidal ideation: No - Past Medical History Cardiac Medical History: Reports: Hx Hypertension Renal/ Medical History: Denies: Hx Peritoneal Dialysis Psychiatric Medical History: Reports: Hx Bipolar Disorder, Hx Schizoaffective Disorder, Hx Schizophrenia - Immunizations Immunizations up to date: Yes Hx Diphtheria, Pertussis, Tetanus Vaccination: Yes <EMILY BAUMAN - Last Filed: 09/30/19 18:15> Review of Systems - Review of Systems -: Yes All other systems reviewed and negative <EMILY BAUMAN - Last Filed: 09/30/19 18:15> Physical Exam <EMILY BAUMAN - Last Filed: 09/30/19 18:15> - Vital signs Vitals: Temp Pulse Resp BP Pulse Ox 97.7 F 89 16 159/81 H 100 09/30/19 15:00 09/30/19 15:00 09/30/19 15:00 09/30/19 15:00 09/30/19 15:00 - Notes Notes: PHYSICAL EXAMINATION: GENERAL: Well-appearing, well-nourished and in no acute distress. A&O. Answering questions appropriately at this time. HEAD: Atraumatic, normocephalic. EYES: Pupils equal round and reactive to light, extraocular movements intact, sclera anicteric, conjunctiva are normal. ENT: Nares patent and without discharge. oropharynx clear without exudates. No tonsilar hypertrophy or erythema. Moist mucous membranes. NECK: Normal range of motion, supple without lymphadenopathy LUNGS: Breath sounds clear to auscultation bilaterally and equal. No wheezes rales or rhonchi. HEART: Regular rate and rhythm without murmurs, rubs, gallops. ABDOMEN: Soft, nontender, nondistended abdomen. No guarding, no rebound. Normal bowel sounds present. No CVA tenderness bilaterally. Musculoskeletal: FROM to passive/active. Strength 5+/5. Extremities: No cyanosis, clubbing, or edema b/l. Peripheral pulses 2+. Capillary refill less than 3 seconds. NEUROLOGICAL: Cranial nerves grossly intact. stuttering speech, normal gait. Normal sensory, motor exams PSYCH: eye contact fair. tangential speech, flight of idea, thoughts of grandeur SKIN: Warm, Dry, normal turgor, no rashes or lesions noted. (EMILY BAUMAN) Course - Laboratory Result Diagrams: 09/30/19 16:02 09/30/19 16:02 <VIN PEREZ - Last Filed: 09/30/19 17:40> - Laboratory Result Diagrams: 09/30/19 16:02 09/30/19 16:02 <EMILY BAUMAN - Last Filed: 09/30/19 18:15> - Re-evaluation Re-evalutation: 09/30/19 17 18:00 Patient is an afebrile, well-hydrated, 23-year-old male who presents with schizo affective disorder. Vitals are acceptable without significant tachycardia, tachypnea, or hypoxia. PE is otherwise unremarkable. He does have thoughts of grandeur which is his baseline. He is otherwise nontoxic-appearing and is able to tolerate p.o. without difficulty. Pt has been evaluated and cleared by our MH team who is very familiar with Mr. Parker. We did give Haldol decon. and congentin today. He has been complaint and calm throughout his stay. He has no SI/HI. Her mental health team has rescinded the IVC paperwork. Low suspicion for any sepsis, endocarditis, acute intracranial pathology, meningitis, fracture, acute abdomen, acute withdrawal, or other systemic infection at this time. Patient is aware that this condition can change from initial presentation and needs to monitor symptoms closely for any acute changes. Conservative measures otherwise for symptoms. Recheck with your PCM in 3-5 days or as needed otherwise. Return to the ED with any worsening/concerning symptoms otherwise as reviewed discharge. Patient is in agreement. (EMILY BAUMAN) - Vital Signs Vital signs: Temp Pulse Resp BP Pulse Ox 97.7 F 89 16 159/81 H 100 09/30/19 15:00 09/30/19 15:00 09/30/19 15:00 09/30/19 15:00 09/30/19 15:00 - Laboratory Laboratory results interpreted by me: 09/30/19 09/30/19 16:02 16:02 WBC 3.9 L Hgb 12.9 L RDW 14.2 H Salicylates < 1.0 L Acetaminophen < 10 L Discharge <VIN PEREZ - Last Filed: 09/30/19 17:40> <EMILY BAUMAN - Last Filed: 09/30/19 18:15> - Discharge Clinical Impression: Schizoaffective disorder Qualifiers: Schizoaffective disorder type: unspecified Qualified Code(s): F25.9 - Schizoaffective disorder, unspecified Condition: Stable Disposition: HOME, SELF-CARE Additional Instructions: You have been evaluated both medical and behavioral health teams and been deemed appropriate for discharge. You received a Haldol Decanoate 100mg shot today 09/30/2019. This shot is good for 3 to 4 weeks. Please follow-up with your outpatient mental health provider for continued medication management. AT ANY TIME, IF YOUR SYMPTOMS CHANGE SIGNIFICANTLY OR WORSEN OR YOU DEVELOP NEW SYMPTOMS, RETURN TO THE EMERGENCY DEPARTMENT IMMEDIATELY FOR RE-EVALUATION. Maintain adequate fluid and food intake Healthy diet tylenol/motrin if needed Monitor for any worsening symptoms Make sure you are staying hydrated enough to urinate and have normal BM's Recheck with your PCM in 3-5 days or as needed Keep appointment with your counselor Return to the ED with any worsening symptoms and/or development of fever, headache, changes in behavior/mentation/vision/speech, chest pain, palpitations, syncope, shortness of breath, trouble breathing, abdominal pain, n/v/d, blood in stool/urine, loss of control of bowel/bladder, urinary retention, muscle weakness/paralysis, saddle anesthesia, numbness/tingling, suicidal/homicidal ideations, visual/auditory hallucinations, or other worsening symptoms that are concerning to you. Forms: Elevated Blood Pressure Referrals: KARO ROONEY MD [Primary Care Provider] - Follow up as needed Silviano Leiws [Outside] - Follow up as needed
[2019-09-30 19:34] VITALS: BP 127/73
[2019-09-30] MEDS ORDERED: HALOPERIDOL DECANOATE INJ 100 MG/1 ML VIAL IM ONE (20:00)
--- NOTE | 2019-10-01 01:07 | EKG REPORT ---
SEVERITY:- NORMAL ECG - SINUS RHYTHM : Confirmed by: Armando Campbell MD 01-Oct-2019 01:06:35
== END 2019-09-30 19:50 | disposition home or self-care (01) ==
LOC: ER 14:54
DX: F25.9 Schizoaffective disorder, unspecified (principal); F31.9 Bipolar disorder, unspecified; I10 Essential (primary) hypertension
CPT/HCPCS: 93005; 36415; 80307 ×4; 85025; 80053; 81001; 93010; J0515; J1631

== ENCOUNTER 2019-10-21 23:05 | Emergency (ER) | payer OTHER ==
[2019-10-21 23:40] LABS: ABSOLUTE EOSINOPHILS # (AUTO) 0.1 10^3/uL (0.0-0.6); ABSOLUTE LYMPHOCYTES (AUTO) 1.8 10^3/uL (0.5-4.7); ABSOLUTE MONOCYTES (AUTO) 0.5 10^3/uL (0.1-1.4); ABSOLUTE NEUT (AUTO) 3.3 10^3/uL (1.7-8.2); BASOPHILS % (AUTO) 0.7 % (0-2); EOSINOPHILS % (AUTO) 1.8 % (0-6); HEMATOCRIT 37.6 % (37.9-51.0); HEMOGLOBIN 12.5 g/dL (13.5-17.0); LYMPHOCYTES % (AUTO) 30.9 % (13-45); MEAN CORPUSCULAR HEMOGLOBIN 28.1 pg (27.0-33.4); MEAN CORPUSCULAR HGB CONC 33.2 g/dL (32.0-36.0); MEAN CORPUSCULAR VOLUME 85 fl (80-97); MONOCYTES % (AUTO) 9.2 % (3-13); PLATELET COUNT 167 10^3/uL (150-450); RED BLOOD COUNT 4.45 10^6/uL (4.35-5.55); RED CELL DISTRIBUTION WIDTH 14.6 % (11.5-14.0); SEGMENTED NEUTROPHILS % (AUTO) 57.4 % (42-78); TOTAL CELLS COUNTED % (AUTO) 100 %; WHITE BLOOD COUNT 5.7 10^3/uL (4.0-10.5)
[2019-10-21 23:49] LABS: APPEARANCE,URINE CLEAR; BILIRUBIN,URINE NEGATIVE (NEGATIVE); COLOR,URINE YELLOW; GLUCOSE, URINE NEGATIVE (NEGATIVE); KETONES,URINE NEGATIVE (NEGATIVE); LEUKOCYTE ESTERASE,URINE NEGATIVE (NEGATIVE); NITRITE,URINE NEGATIVE (NEGATIVE); PROTEIN,URINE NEGATIVE (NEGATIVE); URINE SPECIFIC GRAVITY 1.018; UROBILINOGEN,URINE NEGATIVE mg/dL (<2.0)
[2019-10-21 23:57] LABS: ALBUMIN 4.3 g/dL (3.5-5.0); ALKALINE PHOSPHATASE 77 U/L (38-126); ANION GAP 8 (5-19); ASPARTATE AMINO TRANSFERASE 36 U/L (17-59); BILIRUBIN,TOTAL 0.2 mg/dL (0.2-1.3); BLOOD UREA NITROGEN 14 mg/dL (7-20); CALCIUM 9.3 mg/dL (8.4-10.2); CARBON DIOXIDE 26 mmol/L (22-30); CHLORIDE 105 mmol/L (98-107); GLUCOSE 80 mg/dL (75-110); POTASSIUM 4.3 mmol/L (3.6-5.0)
[2019-10-22 00:01] LABS: ACETAMINOPHEN < 10 ug/mL (10-30); ALCOHOL < 10 mg/dL (NONE DETECTED); SALICYLATE < 1.0 mg/dL (2.0-20.0)
[2019-10-22 00:06] LABS: URINE AMPHETAMINES SCREEN NEGATIVE; URINE BARBITURATES SCREEN NEGATIVE; URINE BENZODIAZEPINES SCREEN NEGATIVE; URINE COCAINE SCREEN NEGATIVE; URINE MARIJUANA (THC) SCREEN NEGATIVE; URINE METHADONE SCREEN NEGATIVE; URINE PHENCYCLIDINE SCREEN NEGATIVE
--- NOTE | 2019-10-22 00:25 | ER Document Report ---
ED Psych Disorder / Suicide - General Chief Complaint: Psych Problem Stated Complaint: IVC Time Seen by Provider: 10/21/19 23:20 Primary Care Provider: KARO ROONEY MD [Primary Care Provider] - Follow up as needed Mode of Arrival: Ambulatory Information source: Parent - IVC papers done by the mobile crisis unit worker. Notes: This 23-year-old patient presents to the emergency department as a known paranoid schizophrenic history of poor compliance with medications apparently reported that he is suicidal and also having command hallucinations telling him to kill himself. This "is from the IVC papers which were petitioned and signed by the senior chemical process engineer. Here at the emergency department, the patient denies being suicidal, however, he also notes that he works for the [employer] and he gets his medications from them. He is unable to have a conversation but does admit to hearing voices. He is unable to articulate what the voices are saying. TRAVEL OUTSIDE OF THE [place] IN LAST 30 DAYS: No - Related Data Allergies/Adverse Reactions: risperidone [From Risperdal] Adverse Reaction (Mild, Verified 10/21/19 23:31) Hallucinations aripiprazole [From Abilify] Adverse Reaction (Verified 10/21/19 23:31) ziprasidone HCl [From Geodon] Adverse Reaction (Verified 10/21/19 23:31) ziprasidone mesylate [From Geodon] Adverse Reaction (Verified 10/21/19 23:31) Home Medications: unknown Past Medical History - Social History Smoking Status: Current Every Day Smoker Frequency of alcohol use: Occasional Drug Abuse: None Family History: Reviewed & Not Pertinent Patient has suicidal ideation: No Patient has homicidal ideation: No - Past Medical History Cardiac Medical History: Reports: Hx Hypertension Renal/ Medical History: Denies: Hx Peritoneal Dialysis Psychiatric Medical History: Reports: Hx Bipolar Disorder, Hx Schizoaffective Disorder, Hx Schizophrenia - Immunizations Immunizations up to date: Yes Hx Diphtheria, Pertussis, Tetanus Vaccination: Yes Review of Systems - Review of Systems Notes: Constitutional: Negative for fever. Cardiovascular: Negative for chest pain. Respiratory: Negative for shortness of breath. Gastrointestinal: Negative for vomiting Musculoskeletal: Negative for back pain. Skin: Negative for rash. Psychiatric: + Denies homicidal or suicidal ideation Neurological: Negative for weakness or numbness. 10 point ROS negative except as marked above and in HPI. Physical Exam - Vital signs Vitals: Temp Pulse Resp BP Pulse Ox 98.3 F 88 20 141/83 H 99 10/21/19 23:06 10/21/19 23:06 10/21/19 23:06 10/21/19 23:06 10/21/19 23:06 - Notes Notes: PHYSICAL EXAMINATION: GENERAL: Well-appearing, well-nourished and in no acute distress. HEAD: Atraumatic, normocephalic. EYES: Pupils equal round and reactive to light, extraocular movements intact, sclera anicteric, conjunctiva are normal. ENT: nares patent, oropharynx clear without exudates. Moist mucous membranes. NECK: Normal range of motion, supple without lymphadenopathy LUNGS: Breath sounds clear HEART: Regular rate and rhythm without murmurs ABDOMEN: Soft, nontender, normoactive bowel sounds. No guarding, no rebound. No masses appreciated. EXTREMITIES: Normal range of motion, no pitting or edema. No cyanosis. NEUROLOGICAL: No focal neurological deficits PSYCH: Cooperative, +auditory hallucinations, denies suicidal or homicidal ideation, poor judgment SKIN: Warm, Dry, normal turgor, no rashes or lesions noted. Course - Re-evaluation Re-evalutation: 10/22/19 00:25 Patient presents with involuntary commitment paperwork completed by the senior chemical process engineer and a mobile environmental services worker who was called to the scene due to the patient's activity. He will be kept on IVC papers and evaluated closely. - Vital Signs Vital signs: Temp Pulse Resp BP Pulse Ox 98.3 F 88 20 141/83 H 99 10/21/19 23:06 10/21/19 23:06 10/21/19 23:06 10/21/19 23:06 10/21/19 23:06 - Laboratory Result Diagrams: 10/21/19 23:20 10/21/19 23:20 Laboratory results interpreted by me: 10/21/19 10/21/19 23:20 23:20 Hgb 12.5 L Hct 37.6 L RDW 14.6 H Salicylates < 1.0 L Acetaminophen < 10 L 10/22/19 00:26 I have reviewed laboratory data and used this information for the treatment decisions regarding the patient. - EKG Interpretation by Me EKG shows normal: Sinus rhythm - Rate 80, [place], Intervals, QRS Complexes, ST-T Waves Discharge - Discharge Clinical Impression: Paranoia Schizophrenia Qualifiers: Schizophrenia type: other Qualified Code(s): F20.89 - Other schizophrenia; F20.8 - Other schizophrenia Psychosis Qualifiers: Psychosis type: schizophrenia Schizophrenia type: paranoid schizophrenia Qualified Code(s): F20.0 - Paranoid schizophrenia Disposition: PSYCH HOSP/UNIT Referrals: KARO ROONEY MD [Primary Care Provider] - Follow up as needed
--- NOTE | 2019-10-22 09:02 | PSYCHOLOGICAL NOTE ---
Psych Note - Psych Note Date seen by psych provider: 10/22/19 Time seen by psych provider: 08:00 Psych Note: Reason for consult: Psych Problem Patient is a 23 year old male who presents to ED via [facility] under 24 hour IVC petition. Per notes, Mobile crisis Lashayantonella Sanchez reports that he was called to patients home by pt's parents. States patient is in acute psychosis, not eating/sleeping for past 3 days, and possibly not taking medications. Mother reports that patient has admitted to hearing voices stating to kill himself. Pt denies any SI/HI, but reports hearing a radio. Pt is responding to questions with unrelated answers. Flamboyant behavior noted upon arrival. Pt states, " I get my meds from the [facility]." Pt states, " I am the BAL." Most other speech is disorganized and incoherent. Pt is cooperative at this time. Patient was sleeping when clinician entered room. Patient was unresponsive to verbal stimuli, so clinician stood that the end of the bed and lightly tapped patients foot with clipboard. Patient woke up in a calm and cooperative manner. Patient stated he is here for reform and he has lost track of days. Patient states I decided to come to the ED because it was the best option. Patient states he needs help for my symptoms. Patient reports his symptoms are stress and fatigue. Patient denies suicidal and homicidal ideations. Patient states he is medication compliant in taking what clinician understood to say as Risperdal and Leander. Clinician observed patient would speak with an off and on stutter. Post discharge, Inocente Sanchez, mobile stage set up worker with [facility] called to check on patient's status. MCW stated he originally attempted to take patient to [facility] but was turned away due to "not having the right insurance" (Medicaid). MCW informed clinician that patient has been linked with the ACT team. Patient had a scheduled assessment but was "too psychotic" (going from room to room) to participate. MCW states he meetings shceduled with the ACT team and follow up with [facility] in continued efforts to link patient with services, especially medication services. Under the G.S 122C-55 that allows coordination of care, clinician informed MCW that patient received an injection of Haldol Decanoate so that the patient's treatment team is aware of medications (prevent harm to patient). MCW stated patient's brother is currently inpatient at a facility and wondered if this was "mom's attempt to get him out of the house for the holidays." There is no observed behavior that suggests patient is responding to internal stimuli. Patient denies current auditory and visual hallucinations. Eye contact is appropriate. Conversational speech is in a low, soft voice with an on and off again observed stutter. Patient is calm and cooperative. Patient was observed eating breakfast meal that was provided. DSM Diagnosis: Per history, Schizoaffective Disorder, Bipolar Type Medication recommendations per [facility] contracted psychiatrist Dr. Ann LIU is as follows: Add Haldol Decanoate 200MG, one time dose Add Haldol 10MG, IM, one time dose Add Cogentin 2MG, one time dose Impression/Plan: Patient is cleared from acute psychiatric services. Patient does not meet IVC criteria per [place] GS 122C. Patient denies suicidal and homicidal ideations. It is recommended that 24 hour IVC petition be rescinded. Clinician observed no behavior that suggests patient is responding to internal stimuli. Patient has a significant history with this ED. At this time, per extensive history, patient appears to be at baseline functioning. Patient historically presents to ED in a form of distress, and then returns to baseline following medication management. Patient is historically non compliant with treatment and medications. It is recommended that patient be followed by a mental health provider for medication management and mental health services. Dr. Lopez was consulted on the care and management of this patient; attending physician is in agreement with recommendations and disposition.
--- NOTE | 2019-10-22 10:42 | ER Document Report ---
Doctor's Note Notes: 10/22/19 10:39 S: patient presented to the ER last night with police and mobile crisis apparently after bizarre behavior, command hallucinations, and SI. He was under IVC from the [facility]. He has been held in the ER since for further behavioral health evaluation. He is well known in this ER. This morning, he states he is doing well. He states that he is not having SI, HI. Denies any hallucinations. O: C: alert and oriented, sleeping initially on arrival to room, easily wakens to light touch and soft voice cardiac: Regular rate and rhythm, no murmurs, rubs, gallops Lung: Clear to auscultation bilaterally, no wheezes, rhonchi, rales Abdomen: Nontender to palpation, soft, no distention Psych: Flat affect, denies SI, HI, hallucinations Skin: Dry, warm, good turgor A/P: Spoke with behavioral health team palpation this morning and pending recommendations from psychiatrist for medicines. Likely will discharge patient after medicines given.` 10/22/19 10:56 Progress: Received orders from psychiatrist for medications for patient. We will give a shot of 10 mg Haldol now and also Haldol decanoate 200 mg now and Cogentin 2 mg now. Patient is no longer under IVC papers. Dr. Cotto is aware and has signed paperwork to resend them. Will discharge home after medication given.
[2019-10-22] MEDS ORDERED: HALOPERIDOL LACTATE INJ 5 MG/1 ML VIAL IM ONE (10:54)
[2019-10-22] MEDS ORDERED: HALOPERIDOL DECANOATE INJ 100 MG/1 ML VIAL IM ONE (10:55)
[2019-10-22] MEDS ORDERED: BENZTROPINE MESYLATE 1 MG TABLET PO ONE (10:55)
[2019-10-22 11:44] VITALS: BP 103/46
--- NOTE | 2019-10-22 17:05 | EKG REPORT ---
SEVERITY:- BORDERLINE ECG - SINUS RHYTHM INFERIOR Q WAVES, PROBABLY NORMAL VARIATION : Confirmed by: Armando Campbell MD 22-Oct-2019 17:04:01
== END 2019-10-22 11:44 | disposition home or self-care (01) ==
LOC: ER 23:05
DX: F20.0 Paranoid schizophrenia (principal); R45.851 Suicidal ideations; I10 Essential (primary) hypertension
CPT/HCPCS: 93005; 36415; 80307 ×4; 85025; 80053; 81001; 93010; J3490; J1631; J1630; 96372; 99285